=== PATIENT | female | born 1995 | race Caucasian/White ===

== ENCOUNTER 2024-06-12 11:52 | Emergency (ER) | payer MEDICAID ==
[~2024-06-12] VITALS: Ht 157.5 cm; Wt 62.6 kg
[2024-06-12 12:27] LABS: BASOPHILS PERCENT AUTO 1 % (0-2); EOSINOPHILS ABSOLUTE AUTO 0.39 K/mm3 (0.00-0.68); EOSINOPHILS PERCENT AUTO 5 % (0-6); Hematocrit 43.2 % (33.0-51.0); Hemoglobin 14.6 g/dL (11.5-16.0); IMMATURE GRAN ABSOLUTE AUTO 0.01 K/mm3 (0.00-0.10); IMMATURE GRAN PERCENT AUTO 0 % (0-1); LYMPHOCYTES ABSOLUTE AUTO 3.12 K/mm3 (0.84-5.20); LYMPHOCYTES PERCENT AUTO 37 % (21-46); MONOCYTES ABSOLUTE AUTO 0.65 K/mm3 (0.16-1.47); MONOCYTES PERCENT AUTO 8 % (4-13); Mean Corpuscular HGB 29.4 pg (26.0-34.0); Mean Corpuscular HGB Conc 33.8 g/dL (31.5-36.5); Mean Corpuscular Volume 87 fL (80-100); Mean Platelet Volume 9.5 fL (9.1-12.4); NEUTROPHILS ABSOLUTE AUTO 4.24 K/mm3 (1.96-9.15); NEUTROPHILS PERCENT AUTO 50 % (41-73); Platelet Count 395 K/mm3 (150-400); RDW Coefficient Variation 12.5 % (11.7-14.2); Red Blood Cell Count 4.96 M/mm3 (3.80-5.20); White Blood Cell Count 8.51 K/mm3 (4.00-11.30)
[2024-06-12 12:46] LABS: Albumin, Blood 3.9 g/dL (3.4-5.0); Bilirubin, Total 0.2 mg/dL (0.1-1.0); Calcium, Blood 9.1 mg/dL (8.5-10.1); Creatinine, Blood 0.75 mg/dL (0.40-1.00); Globulin, Blood 4.1 g/dL (2.2-4.0); Potassium, Blood 3.8 mmol/L (3.5-5.5)
[2024-06-12 12:54] LABS: Source, Urine Clean Catch
[2024-06-12 13:02] LABS: Appearance, Urine Hazy (Clear); Bilirubin, Urine Neg (Neg); Blood, Urine 2+ (Neg); Color, Urine Yellow (P-Yellow); Glucose Qualitative, Urine Neg (Neg); Ketones, Urine Neg (Neg); Leukocyte Esterase, Urine 3+ (Neg); Nitrite, Urine Neg (Neg); Protein, Urine 1+ (Neg); Specific Gravity, Urine 1.025 (1.003-1.022); Urobilinogen, Urine NORM (Normal)
[2024-06-12 13:08] LABS: Bacteria Few /hpf; Mucus Light (0-Heavy); Squamous Epithelial Cells Many /hpf (Few)
[2024-06-12] MEDS ORDERED: Gabapentin 100 MG Cap PO ONE (16:20)
[2024-06-12] MEDS ORDERED: Neurontin 100100 MG PO (16:20)
== END 2024-06-12 16:57 | disposition home or self-care (01) ==
LOC: ER 11:52
PROVIDERS: Physician Assistant
DX: G40.209 Localization-related (focal) (partial) symptomatic epilepsy and epileptic syndromes with complex partial seizures, not intractable, without status epilepticus (principal); R55 Syncope and collapse; Z86.69 Personal history of other diseases of the nervous system and sense organs
CPT/HCPCS: 80053; 81001; 81025; 85025; 87086; 99284; A9270

== ENCOUNTER → 2025-01-11 | Outpatient (CLI) | payer OTHER ==
[~2025-01-11] MED LIST: Neurontin 100100 MG PO
== END | disposition home or self-care (01) ==
LOC: LAB SHORT 16:58 → LAB 16:58
DX: R35.0 Frequency of micturition (principal)
CPT/HCPCS: 87086